=== PATIENT | male | born 1985 | race Caucasian/White ===

== ENCOUNTER 2022-01-12 12:32 | Emergency (ER) | payer OTHER ==
[2022-01-12] MEDS ORDERED: LEXAPRO20 MG PO (14:04)
[2022-01-12] MEDS ORDERED: AMLODIPINE BESY10 MG PO (14:04)
== END 2022-01-12 16:08 | disposition home or self-care (01) ==
LOC: FER 12:32
DX: S90.32XA Contusion of left foot, initial encounter (principal); I10 Essential (primary) hypertension; F41.9 Anxiety disorder, unspecified; F17.210 Nicotine dependence, cigarettes, uncomplicated; Z88.2 Allergy status to sulfonamides; Z88.5 Allergy status to narcotic agent; Z79.899 Other long term (current) drug therapy; V03.90XA Pedestrian on foot injured in collision with car, pick-up truck or van, unspecified whether traffic or nontraffic accident, initial encounter
CPT/HCPCS: 73630